=== PATIENT | female | born 1940 | race Hispanic/Latino ===

== ENCOUNTER 2023-08-26 18:21 | Emergency (ER) | payer MEDICARE ==
[2023-08-26 20:00] LABS: Bilirubin Neg (Negative); Blood, Urine 10 (Negative); Clarity Clear (Clear); Glucose, Urine (Dipstick) Normal (Negative); Ketone, Urine 5 mg/dL (Negative); Leukocyte 25 (Negative); Nitrite Negative (Negative); Protein, Urine (Dipstick) 30 mg/dl (Neg-Trace); Specific Gravity, Urine 1.025 (1.005-1.030)
[2023-08-26 20:19] LABS: CAUTI Indications for Culture Alt mental st,lethar; RBC/HPF 0-3 HPF (0-3); Squamous Epithelial 0-3 HPF (0-3)
[2023-08-26 20:21] LABS: Bacteria/HPF 1+ HPF (None Seen); Mucous/LPF 2+ LPF (<2+)
[2023-08-26 20:23] LABS: White Blood Cell Cast 0-3 LPF (None Seen)
[2023-08-26 20:24] LABS: Urine Culture Reflex No No
[2023-08-26 21:06] LABS: #Basophils 0.03 10x3/uL (0.0-0.2); #Eosinphils 0.07 10x3/uL (0.0-0.5); #Monocytes 0.43 10x3/uL (0.0-1.1); #Neutrophils 6.25 10x3/uL (1.5-8.4); %Basophils 0.3 % (0.0-2.0); %Eosinophils 0.7 % (0.0-6.0); %Lymphocytes 27.6 % (18.0-47.0); %Monocytes 4.6 % (0.0-10.0); %Neutrophils 66.3 % (40.0-75.0); Hematocrit 45.4 % (34.9-44.5); Hemoglobin 13.8 g/dL (12.0-15.5); Mean Corpuscular HGB CONC 30.4 g/dL (32.0-36.0); Mean Corpuscular Hemoglobin 30.8 pg (27.0-33.0); Mean Corpuscular Volume 101.3 fL (81.6-98.3); Mean Platelet Volume 13.4 fL (7.4-10.4); Platelet Count 157 10x3/uL (150-450); RBC Distribution Width 16.8 % (11.5-14.5); Red Blood Cell (RBC) Count 4.48 10x6/uL (3.90-5.03); White Blood Cell (WBC) Count 9.4 10x3/uL (3.5-10.5)
[2023-08-26 21:08] LABS: Troponin I 0.176 ng/mL (< 0.028)
[2023-08-26 21:19] LABS: ALT (SGPT) 25 U/L (8-55); AST (SGOT) 22 U/L (5-34); Albumin 3.2 g/dL (3.4-4.8); Alkaline Phosphatase 82 U/L (40-110); Anion Gap 11 mmol/L (10-20); BUN (Urea Nitrogen) 56 mg/dL (9.8-20.1); Bilirubin, Total 0.5 mg/dL (0.2-1.2); Calc. Creatinine Clearance 0 mL/min (70-130); Carbon Dioxide 28 mmol/L (23-31); Chloride 136 mmol/L (98-107); Estimated GFR 89; Globulin 3.3 g/dL (2.4-3.5); Glucose 97 mg/dL (83-110); Potassium 3.2 mmol/L (3.5-5.1); Protein, Total 6.5 g/dL (5.8-8.1); Sodium 172 mmol/L (136-145)
[2023-08-26] MEDS ORDERED: CEFAZOLIN 2 GM VIAL ONE (21:27)
[2023-08-26] MEDS ORDERED: Vancomycin 1 GM VIAL ONE (21:27)
[2023-08-26] MEDS ORDERED: Aspirin 300 MG Suppository ONE (21:28)
== END 2023-08-26 23:06 | disposition short-term general hospital (02) ==
LOC: CSHERS 18:21
DX: E87.0 Hyperosmolality and hypernatremia (principal); M46.38 Infection of intervertebral disc (pyogenic), sacral and sacrococcygeal region; I21.4 Non-ST elevation (NSTEMI) myocardial infarction
CPT/HCPCS: 36415; 71045; 80053; 81001; 83605; 84484; 85025; 87040; 87086; J3370